=== PATIENT | male | born 1975 | race Hispanic/Latino ===

== ENCOUNTER → 2017-10-24 | Outpatient (CLI) | payer OTHER | LOC: RAH 14:24 | PROVIDERS: ATTEND Internal Medicine | DX: M50.322 Other cervical disc degeneration at C5-C6 level (principal); M41.84 Other forms of scoliosis, thoracic region; M41.86 Other forms of scoliosis, lumbar region | CPT/HCPCS: 72040; 72070; 72081; 72100 ==